=== PATIENT | female | born 1980 | race Caucasian/White ===

== ENCOUNTER 2018-11-01 15:40 | Emergency (ER) | payer BC ==
--- OUTSIDE RECORDS SUMMARY | 2018-11-01 15:45 | XMS REPORT | Continuity of Care Document ---
:1980 External Reference #:[id number] Author Name Christina Antony Care Team Providers Name Role Phone Suzanne Pritchett PA Primary Care Physician Unavailable Payers Type Date Identification Numbers Payment Provider Subscriber Expires: 2017 Policy Number: [id number] [employer] Nannette Galeana Group Name: [facility] [address] PayID: [id number] [place] [address] Policy Number: [id number] [facility] Nannette Galeana PayID: [id number] [address] [place] [address] Advance Directives Description No Information Available Problems Date Description Provider Status Onset: 09/27/2015 Myocardial infarction Zane Zamudio MD, [facility], Active [facility] Onset: 10/02/2017 Acute subendocardial infarction Zane Zamudio MD, [facility] , Active [facility] Onset: 07/03/2018 Localized, primary osteoarthritis Miles Sesay MD Active Onset: 07/03/2018 Current tear of lateral cartilage Miles Sesay MD Active AND/OR meniscus of knee Onset: 07/03/2018 Derangement of knee Miles Sesay MD Active Family History Date Family Member(s) Problem(s) Comments General Diabetes Type I General Hypertension General Cancer Social History Type Date Description Comments Sex Unknown Marital Status Lives With Spouse Occupation Currently Working Tobacco Use Start: Unknown End: Former Cigarette Smoker Unknown Smoking Status Reviewed: 10/08/18 Former Cigarette Smoker ETOH Use Occasionally consumes alcohol Tobacco Use Start: Unknown End: Patient is a former quit 09/20/15, Unknown smoker smoked for 15yrs 1PPD Recreational Drug Use Denies Drug Use Exercise Type/Frequency Does not exercise Allergies, Adverse Reactions, Alerts Description No Known Drug Allergies Medications Medication Date Status Form Strength Qnty SIG Indications Ordering Provider Aspirin 00/00/ Active Tablets 81mg 1 by mouth Unknown 0000 every day Tylenol 00/00/ Active prn Unknown 0000 Lisinopril 0000/ Active Tablets 10mg 90tabs 1 by mouth Marcis T. 0000 every day MD Zamudio FACC, [facility] Atorvastatin // Active Tablets 80mg 1 by mouth Unknown Calcium 0000 every day Novolog / Active Solution 100Unit/ML -on Unknown 0000 insulin pump Nitrostat / Active Tablets 0.4mg 30tabs one sl Marcis T. 0000 Sub q5min up Sodkathy, to 3 doses JOSHUA MISHRA, as needed [facility] Wellbutrin XL / Active Tablets ER 300mg 1 by mouth Unknown 0000 24HR every day Plavix 11/18/ Hx Tablets 75mg 90tabs 1 by mouth I21.4 Zane T. 2016 - every day Sodkathy, 10/21/ JOSHUA MISHRA, 2017 [facility] Metoprolol / Hx Tablets ER 50mg 1 by mouth Unknown Succinate ER 0000 - 24HR every day 2014 Chantix / Hx as Unknown 0000 - directed 2016 Effient / Hx Tablets 10mg 90tabs 1 by mouth Marcis T. - every day Sodums, 09/19/ JOSHUA MISHRA, 2014 [facility] Lexapro / Hx Tablets 10mg 1 by mouth Unknown 0000 - every day 2016 Medications Administered in Office Medication Date Status Form Strength Qnty SIG Indications Ordering Provider Depomedrol Administered Injection Dirk Fabienne, 40MG 018 M.D. Immunizations Description No Information Available Vital Signs Date Vital Result Comment 10/08/2018 2:51pm Height 64 inches 5'4" Weight 207.00 lb BP Systolic 138 mmHg BP Diastolic 80 mmHg Pain Level 3 BMI (Body Mass Index) 35.5 kg/m2 07/03/2018 8:12am Height 64 inches 5'4" Respiratory Rate 18 /min Pain Level 5 06/09/2018 8:31am Height 64 inches 5'4" Weight 203.00 lb Heart Rate 120 /min BP Systolic Sitting 148 mmHg Lue lg cuff BP Diastolic Sitting 98 mmHg Lue lg cuff Pain Level 4 BMI (Body Mass Index) 34.8 kg/m2 06/01/2018 10:06am Height 64 inches 5'4" Weight 203.00 lb Heart Rate 78 /min BP Systolic 144 mmHg BP Diastolic 80 mmHg Respiratory Rate 18 /min Pain Level 4 BMI (Body Mass Index) 34.8 kg/m2 04/27/2018 3:23pm Height 64 inches 5'4" Weight 203.00 lb Heart Rate 72 /min BP Systolic 138 mmHg BP Diastolic 74 mmHg Respiratory Rate 12 /min Body Temperature 98.8 F Pain Level 4 BMI (Body Mass Index) 34.8 kg/m2 04/20/2018 1:05pm Height 64 inches 5'4" Weight 208.00 lb w/ shoes Heart Rate 90 /min BP Systolic Sitting 126 mmHg lue lg cuff BP Diastolic Sitting 62 mmHg lue lg cuff BP Systolic Standing 122 mmHg lue lg cuff BP Diastolic Standing 68 mmHg lue lg cuff Respiratory Rate 18 /min BMI (Body Mass Index) 35.7 kg/m2 Ejection Fraction 55-60% echo 09/19/15 10/02/2017 2:52pm Height 64 inches 5'4" Weight 200.00 lb w/ shoes Heart Rate 132 /min regular BP Systolic Sitting 142 mmHg lue reg cuff BP Diastolic Sitting 82 mmHg lue reg cuff BP Systolic Standing 138 mmHg lue reg cuff BP Diastolic Standing 78 mmHg lue reg cuff Respiratory Rate 18 /min BMI (Body Mass Index) 34.3 kg/m2 Ejection Fraction 50-55% ECHO 09/19/15 11/18/2016 8:30am Height 64 inches 5'4" Weight 195.00 lb w/o shoes Heart Rate 92 /min reg BP Systolic Sitting 140 mmHg Rue, reg cuff BP Diastolic Sitting 100 mmHg Rue, reg cuff Respiratory Rate 16 /min BMI (Body Mass Index) 33.5 kg/m2 Ejection Fraction 50-55% as of 09/19/15 echo 07/03/2016 8:39am Height 64 inches 5'4" Weight 202.00 lb Heart Rate 94 /min 96 BP Systolic Sitting 116 mmHg left arm, reg cuff BP Diastolic Sitting 80 mmHg left arm, reg cuff BP Systolic Standing 112 mmHg left arm, reg cuff BP Diastolic Standing 78 mmHg left arm, reg cuff Respiratory Rate 20 /min BMI (Body Mass Index) 34.7 kg/m2 Ejection Fraction 50-55% 09/19/15 01/15/2016 9:49am Height 64 inches 5'4" Weight 197.00 lb Heart Rate 72 /min 76 BP Systolic Sitting 126 mmHg right arm, reg cuff BP Diastolic Sitting 84 mmHg right arm, reg cuff BP Systolic Standing 122 mmHg right arm, reg cuff BP Diastolic Standing 80 mmHg right arm, reg cuff Respiratory Rate 16 /min BMI (Body Mass Index) 33.8 kg/m2 Ejection Fraction 50-55% 09/19/15 09/27/2015 11:04am Height 64 inches 5'4" Weight 198.00 lb Heart Rate 68 /min 90 BP Systolic Sitting 118 mmHg right arm, reg cuff BP Diastolic Sitting 76 mmHg right arm, reg cuff BP Systolic Standing 110 mmHg right arm, reg cuff BP Diastolic Standing 76 mmHg right arm, reg cuff Respiratory Rate 16 /min BMI (Body Mass Index) 34.0 kg/m2 Ejection Fraction 60% 09/19/15 Cath Results Description No Information Available Procedures Date Code Description Status 04/27/2018 15937 Inject/Drain Joint/Bursa Major W/O US Completed 10/02/2017 83593 EKG Tracing & Interpretation Completed 11/18/2016 69860 EKG Tracing & Interpretation Completed 09/27/2015 36531 EKG Tracing & Interpretation Completed 09/19/2015 48884 Left Heart Cath. Incl S/I Coronaries, Angio S/I V Gram If Completed Done 09/19/2015 42261 ECHO Transthorasic Realtime 2D W Doppler & Color Flow Hosp Completed 09/19/2015 14522 Revascularization Acute Total/Subtotal Occlusion Completed Encounters Type Date Location Provider Dx Diagnosis Office Visit 07/03/2018 Orthopedic Miles Sesay MD M17.12 Unilateral primary 8:15a [facility] osteoarthritis, left knee M23.612 Oth spon disrupt of anterior cruciate ligament of left knee Office Visit 06/09/2018 Orthopedic Miles Sesay M17.12 Unilateral primary 8:30a [facility] osteoarthritis, left [facility] knee M23.612 Oth spon disrupt of anterior cruciate ligament of left knee M23.352 Oth meniscus derang, posterior horn of lat mensc, left knee Office Visit 06/01/2018 Orthopedic Lyndon Loving M17.12 Unilateral primary 10:15a [facility] [place] osteoarthritis, left [facility] knee S83.204A Oth tear of unsp meniscus, current injury, left knee, init Office Visit 04/27/2018 Orthopedic ayaz Fabienne, M17.12 Unilateral primary 3:00p [facility] osteoarthritis, left [facility] knee M11.262 Other chondrocalcinosis, left knee Office Visit 04/20/2018 1:20p [facility] Zane Lazo I21.4 Non-St elevation Of [employer] Dispenser AT [facility] MD Lizz, (Nstemi) [facility] myocardial infarction Office Visit 10/02/2017 3:00p [facility] Zane Lazo I21.4 Non-St elevation Of [employer] AT [place] Zamudio MD, (Nstemi) [facility] myocardial infarction Office Visit 11/18/2016 8:40a [facility] Zane Lazo I21.4 Non-St elevation Of [employer] AT [place] Zamudio MD, (Nstemi) [facility] myocardial infarction M25.512 Pain in left shoulder Office Visit 07/03/2016 8:40a [facility] Zane Lazo I21.4 Non-St elevation Of [employer] Dispenser AT [place] Zamudio MD, (Nstemi) [facility] myocardial infarction Office Visit 01/15/2016 9:40a [facility] Zane Lazo I21.4 Non-St elevation Of [employer] Dispenser AT [place] Zamudio MD, (Nstemi) [facility] myocardial infarction E11.9 Type 2 diabetes mellitus without complications Office Visit 09/27/2015 11:20a [facility] Zane Lazo I21.4 Non-St elevation Of [employer] Dispenser AT [place] Zamudio MD, (Nstemi) [facility] myocardial infarction F17.209 Nicotine dependence, unsp, w unsp nicotine-induced disorders E11.9 Type 2 diabetes mellitus without complications Office Visit 09/20/2015 3:01p [facility] I21.4 Non-St elevation Assoc,sea Kellogg D.O. [facility] F[facility].209 Nicotine dependence, unsp, w unsp nicotine-induced disorders E11.9 Type 2 diabetes mellitus without complications F41.9 Anxiety disorder, unspecified Office Visit 09/19/2015 3:00p [facility] Miranda I21.4 Non-St elevation Assoc,sea Kellogg D.O. (Nstemi) Hospitalists myocardial infarction F17.209 Nicotine dependence, unsp, w unsp nicotine-induced disorders E11.9 Type 2 diabetes mellitus without complications F41.9 Anxiety disorder, unspecified Office Visit 09/19/2015 [facility] Zane Zamudio, I21.4 Non-St elevation 3:36p Of [facility] AT [facility] , FACPete, [facility]SCJASON (Nstemi) myocardial infarction Office Visit 09/18/2015 [facility] Justyn Artmorena I21.4 Non-St elevation 3:00p Assoc,pc Deandre CUNHA (Nstemi) Hospitalists myocardial infarction F17.209 Nicotine dependence, unsp, w unsp nicotine-induced disorders E11.9 Type 2 diabetes mellitus without complications F41.9 Anxiety disorder, unspecified Office Visit 10/01/2014 3:20p [facility] Brad A. 250.10 Diabetes W/ Assoc,pc [place], Ketoacidosis Type Hospitalists M.DKatelyn II Or Unspec Controlled 276.51 Dehydration Office Visit 09/30/2014 3:20p [facility] Brad AKatelyn 250.10 Diabetes W/ Assoc,pc [place], Ketoacidosis Type Hospitalists M.DKatelyn II Or Unspec Controlled 276.51 Dehydration Plan of Treatment Future Appointment(s):2018 8:15 am - Miles Sesay MD at [facility]10/14/2018 9:30 am - Jose De La Paz M.D. at [facility]10/08/2018 - Miles Sesay, MDM17.12 Unilateral primary osteoarthritis, left kneeNew Therapy:Physical TherapyFollow up:Follow up: in .612 Other spontaneous disruption of anterior cruciate ligament o
[2018-11-01 15:55] VITALS: BP 141/80
--- NOTE | 2018-11-01 16:36 | UC ---
Knee Pain HPI - HPI Summary HPI Summary: FELL OFF BLEACHERS YESTERDAY AFTERNOON AND TWISTED HER LEFT KNEE. HAD NO PAIN INITIALLY BUT THIS MORNING WOKE UP WITH SIGNIFICANT PAIN AND SWELLING. IS UNABLE TO WEIGHT-BEAR. HAS SIGNIFICANTLY LIMITED RANGE OF MOTION. IS FOLLOWING WITH DR. HUBBARD WITH ORTHOPEDICS FOR WHAT SOUNDS LIKE A PATEL'S CYST IN HER LEFT KNEE AND ALSO OSTEOARTHRITIS. REPORTS HISTORY OF MENISCAL SURGERY ABOUT 25 YEARS AGO. ALSO REPORTS THAT IN HER EVALUATIONS BY DR. HUBBARD IT WAS DISCOVERED THAT SHE HAS NO ACL IN THAT LEFT KNEE. - History of Current Complaint Chief Complaint: UCLowerExtremity Stated Complaint: KNEE INJURY Time Seen by Provider: 11/01/18 15:59 Hx Obtained From: Patient Hx Last Menstrual Period: has IUD, over 10 yrs Onset/Duration: Gradual Onset, Lasting Hours, Still Present Severity Initially: Moderate Severity Currently: Moderate Pain Intensity: 9 Pain Scale Used: 0-10 Numeric Character: Sharp Aggravating Factor(s): Movement, Weight Bearing Alleviating Factor(s): Rest Associated Signs And Symptoms: Positive: Swelling Able to Bear Weight: No - Allergies/Home Medications Allergies/Adverse Reactions: Allergies Allergy/AdvReac Type Severity Reaction Status Date / Time No Known Allergies Allergy Verified 11/01/18 15:52 PMH/Surg Hx/FS Hx/Imm Hx Endocrine History: Diabetes Cardiovascular History: Hypertension - Surgical History Surgical History: Yes Surgery Procedure, Year, and Place: Gastric bypass 2007, [facility] [place] , [place],. cardiac stent. C SECTION 2001. 1992 Lt KNEE - MMT REPAIR - Family History Known Family History: Negative: Cardiac Disease, Hypertension, Diabetes - Social History Alcohol Use: Occasionally Alcohol Amount: 2 Substance Use Type: None Smoking Status (MU): Light Every Day Tobacco Smoker Type: Cigarettes Amount Used/How Often: 1 PPD Have You Smoked in the Last Year: Yes - Immunization History Most Recent Influenza Vaccination: 2013 Most Recent Tetanus Shot: unk Most Recent Pneumonia Vaccination: 2013 Review of Systems All Other Systems Reviewed And Are Negative: Yes Constitutional: Positive: Negative Respiratory: Positive: Negative Cardiovascular: Positive: Negative Gastrointestinal: Positive: Negative Musculoskeletal: Positive: Arthralgia, Decreased ROM, Edema Physical Exam Triage Information Reviewed: Yes Appearance: Well-Appearing, Well-Nourished, Pain Distress - MODERATE Vital Signs: Initial Vital Signs Temp 98.6 F 11/01/18 15:47 Pulse 90 11/01/18 15:47 Resp 17 11/01/18 15:47 BP 141/80 11/01/18 15:47 Pulse Ox 100 11/01/18 15:47 Vital Signs Reviewed: Yes Eyes: Positive: Conjunctiva Clear ENT: Positive: Hearing grossly normal Neck: Positive: Supple Respiratory: Positive: No respiratory distress, No accessory muscle use Cardiovascular: Positive: Pulses Normal Abdomen Description: Positive: Soft Musculoskeletal: Positive: ROM Limited @ - LEFT KNEE, Edema @ - LEFT KNEE, Other : - TTP LEFT KNEE PROXIMALLY AND OVER LATERAL JOINT LINE AND PATELLAR LIGAMENT. LIMITED ROM BOTH EXTENSION AND FLEXION. UNABLE TO DO FULL KNEE EXAM DUE TO PT DISCOMFORT. LARGE EFFUSION. Neurological: Positive: Alert Psychological: Positive: Age Appropriate Behavior Skin: Negative: Rashes Diagnostics - Radiology LEFT KNEE PAIN Radiology Interpretation Completed By: Radiologist Summary of Radiographic Findings: LARGE JOINT EFFUSION, NO FRACTURE IS SEEN. Knee Pain Course/Dx - Course Course Of Treatment: LARGE JOINT EFFUSION ON XRAY TODAY. SUSPECT INTERNAL KNEE INJURY. OTC MEDS FOR PAIN. HYDROCODONE FOR BREAKTHROUGH. CALL ORTHO TOMORROW FOR F/U APPT. KNEE IMMOBILIZER AND CRUTCHES PROVIDED TODAY. CHIEF ENGINEER REFERENCE#: [id number] - Differential Dx/Diagnosis Provider Diagnosis: Left knee injury Discharge - Sign-Out/Discharge Documenting (check all that apply): Patient Departure All imaging exams completed and their final reports reviewed: Yes - Discharge Plan Condition: Stable Disposition: HOME Prescriptions: HYDROcodone/ACETAMIN 5-325 MG* [[place] 5-325 TAB*] 1 tab PO Q6H PRN #20 tab MDD 4 PRN Reason: Pain Patient Education Materials: Swollen Knee Joint (ED) Referrals: Suzanne Pritchett PA [Primary Care Provider] - If Needed Miles Hubbard MD [Medical Doctor] - 2 Days Additional Instructions: LEFT KNEE XRAY TODAY SHOWS LARGE JOINT EFFUSION, NO FRACTURE. OTC IBUPROFEN OR ALEVE NEEDED FOR DISCOMFORT. HYDROCODONE/APAP FOR BREAKTHROUGH PAIN. REST, ICE, COMPRESS, ELEVATE. KNEE IMMOBILIZER AND CRUTCHES TO HELP WITH MOBILITY. SUSPECTED INTERNAL KNEE INJURY: The examiner of your injured knee suspects an internal injury to the cartilage or internal ligaments. This must be further investigated by an land acquisition specialist. The knee should be protected, ice packed, and elevated while awaiting your follow-up exam by the orthopedist. If there is severe swelling, severe pain, or any new symptoms while awaiting your exam, you should call the orthopedist. (If he/she is unavailable, call us or return for re-examination.) - Billing Disposition and Condition Condition: STABLE Disposition: Home
== END 2018-11-01 17:32 | disposition home or self-care (01) ==
LOC: UCEAST 15:40
DX: S89.92XA Unspecified injury of left lower leg, initial encounter (principal); F17.210 Nicotine dependence, cigarettes, uncomplicated; I10 Essential (primary) hypertension; E11.9 Type 2 diabetes mellitus without complications; X58.XXXA Exposure to other specified factors, initial encounter; Y92.9 Unspecified place or not applicable
CPT/HCPCS: 99213; G0463

== ENCOUNTER 2019-02-17 05:33 | Day surgery (SDC) | payer BC ==
--- NOTE | 2019-02-09 14:29 | HP ---
PRE-OPERATIVE HISTORY AND PHYSICAL: DATE OF SURGERY: 02/17/19 ATTENDING SURGEON: Dr. Miles Sesay* (dictated by Francisca Astorga). PROCEDURE: Left knee arthroscopy, anterior cruciate ligament reconstruction with allograft, arthroscopic surgery with BioUni to the medial femoral condyle. CHIEF COMPLAINT: Right knee. HISTORY OF PRESENT ILLNESS: Nannette is a 38-year-old female who presents to the clinic for followup of her left knee ACL tear and osteoarthritis in the medial compartment. She has failed conservative management, therefore, agreed to undergo left knee arthroscopy, anterior cruciate ligament reconstruction with allograft. Arthroscopic surgery with BioUni to the medial femoral condyle with Dr. Sesay on 02/17/19. PAST MEDICAL HISTORY: 1. Hypertension and AMI in 2014. 2. Type 1 diabetes. PAST SURGICAL HISTORY: 1. Cardiac stent 2014. 2. Gastric bypass in 2007. 3. Left knee scope. 4. The patient denies prior complications with anesthesia. FAMILY HISTORY: Positive for diabetes, hypertension, and cancer. Denies family history of DVT or PE. SOCIAL HISTORY: She lives with her spouse. 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 She is a former smoker, quit in 2014. She reports occasional alcohol consumption. She exercises occasionally. She is right hand dominant. MEDICATIONS: 1. Diclofenac 75 mg 1 by mouth twice a daily with food. 2. Aspirin 81 mg 1 by mouth every day. 3. Tylenol as needed. 4. Lisinopril 10 mg 1 by mouth daily. 5. Atorvastatin 80 mg 1 by mouth daily. 6. NovoLog 100 units/mL on insulin pump as needed. 7. Nitrostat 0.4 mg 1 sublingual every 5 minutes up to 3 doses as needed. 8. Wellbutrin 300 mg 1 by mouth every day. ALLERGIES: No known drug allergies. REVIEW OF SYSTEMS: The 14-point review of systems was reviewed with the patient. Positive for current complaint, otherwise negative. Denies fevers, chills, chest pain, shortness of breath, history of DVT or PE, history of bleeding disorder. PHYSICAL EXAMINATION GENERAL: A 38-year-old well-developed, well-nourished female in no acute distress. Alert and oriented x3. Appropriate mood and affect. No problems with coordination of the lower extremities VITAL SIGNS: Height 64, weight 206. Pulse 94, blood pressure 127/91, temperature 98.2, BMI 35.4. HEENT: Normocephalic, atraumatic, PERRLA. Throat clear. NECK: Supple. PULMONARY: Lungs clear to auscultation bilaterally. No wheezing, rhonchi, or rales. CARDIAC: Regular rate and rhythm. S1 and S2. No murmurs, gallops, or rubs. No edema. ABDOMEN: Positive bowel sounds. Soft, nontender. NEUROLOGIC: Alert and oriented x3. Cranial nerves grossly intact. MUSCULOSKELETAL: Left lower extremity: Skin is intact. No warmth or erythema. She has a mild effusion, tenderness over the medial joint line to the Talia. Negative posterior drawer. Stable varus and valgus stress. Range of motion is 1 to 135. Calf soft, nontender. 5/5 strength with ankle dorsiflexion and plantar flexion. Brisk capillary refill. DIAGNOSTIC STUDIES: MRI revealed medial compartment osteoarthritis, loss of ACL, degenerative changes with parameniscal cysts and some tearing of the lateral meniscus. PLAN: The patient is scheduled to undergo left knee arthroscopy. anterior cruciate ligament reconstruction with allograft, arthroscopic surgery with BioUni to the medial femoral condyle on 02/17/19. She has been cleared by her primary care physician as well as Cardiology. She was instructed to stop aspirin and NSAIDs 1- week prior to surgery. Percocet will be used for postop pain management and Keflex for antibiotics prophylaxis. DARRIN HUFFMAN [id number]/CARLOS #: [id number] ZAIRE
[~2019-02-17 05:33] MED LIST: Buffered Lidocaine 1% SYRIN* 1 ML/SYRINGE INTRADERM ONE
[2019-02-17] MEDS ORDERED: Lactated Ringers 1000 ML Bag* 1,000 ML IV SCH (06:00)
[2019-02-17] MEDS ORDERED: Famotidine IV* 10 MG/ML 2 ML (20 mg) ONE (06:00)
[2019-02-17] MEDS ORDERED: ceFAZolin 2 GM PREMIX in ORs 2 GM/50 ML BAG IVPB ONE (06:00)
[2019-02-17] MEDS ORDERED: Famotidine IV* 10 MG/ML 2 ML (20 mg) IV ONE (06:00)
[2019-02-17] MEDS ORDERED: Ketorolac INJ* 30 MG/ML 1 ML VIAL ONE (07:08)
[2019-02-17] MEDS ORDERED: Midazolam* 1 MG/ML 5 ML VIAL (5 MG) ONE (07:08)
[2019-02-17] MEDS ORDERED: Dexamethasone IV* 4 MG/ML 1 ML (4 MG) ONE (07:08)
[2019-02-17] MEDS ORDERED: fentaNYL* 50 MCG/ML 5 ML VIAL (250 MCG VIAL) ONE (07:08)
[2019-02-17] MEDS ORDERED: Propofol* 10 MG/ML 20 ML BTL ONE (07:08)
[2019-02-17] MEDS ORDERED: Ondansetron INJ* 2 MG/ML VIAL ONE ×2 (07:08→11:12)
[2019-02-17] MEDS ORDERED: Lidocaine 2% PF * 5 ML VIAL ONE (07:08)
[2019-02-17] MEDS ORDERED: Phenylephrine 10 MG/ML VIAL* 1 ML VIAL ONE (07:08)
[2019-02-17] MEDS ORDERED: KETAMINE HCL* 50 MG/ML 10 ML VIAL ONE (07:08)
[2019-02-17] MEDS ORDERED: Lidocaine 1% MPF wEPI 200,000* 30 ML SDV ONE (07:49)
[2019-02-17] MEDS ORDERED: Ropivacaine* 2 MG/ML 20 ML VIAL (0.2%) ONE ×2 (07:50→10:36)
[2019-02-17] MEDS ORDERED: Insulin REGULAR(*) 1 UNITS UNIT ONE (08:34)
[2019-02-17] MEDS ORDERED: fentaNYL* 50 MCG/ML 2 ML VIAL (100 MCG VIAL) ONE ×3 (08:40→11:08)
[2019-02-17] MEDS ORDERED: DiMENhydriNATE IV* 50 MG/ML VIAL ONE (10:25)
[2019-02-17] MEDS ORDERED: Ondansetron INJ* 2 MG/ML VIAL IV PRN (10:31)
[2019-02-17] MEDS ORDERED: Naloxone* 0.4 MG/ML 1 ML VIAL IV PRN (10:31)
[2019-02-17] MEDS ORDERED: HYDROmorphone INJ1* 1 MG/ML SYRINGE ONE (10:34)
[2019-02-17] MEDS ORDERED: oxyCODONE/Acetamin 5/325 MG* TAB ONE (11:08)
[2019-02-17] MEDS: fentaNYL* 50 MCG/ML 2 ML VIAL (100 MCG VIAL) IV PRN ×2 (11:10→11:31)
[2019-02-17] MEDS: oxyCODONE/Acetamin 5/325 MG* TAB PO PRN ×2 (11:11→12:12)
[2019-02-17 12:19] VITALS: BP 102/78
--- NOTE | 2019-02-17 16:31 | OP ---
CC: PCP* OPERATIVE REPORT: DATE OF OPERATION: 02/17/19 - SDS DATE OF : 78 ATTENDING SURGEON: Miles Sesay MD. LOGISTICS OFFICER: DARRIN Eller, and DARRIN Lama. An operator assistant i cementing was needed for the entirety of the case to help with positioning, retraction, and utilized throughout all portions of the case. ANESTHESIOLOGIST: Dr. Love. ANESTHESIA: General. 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 OPERATIVE PROCEDURE: Left knee arthroscopy with: 1. Partial medial and partial lateral meniscectomy. 2. Bio[employer] medial femoral condyle osteochondral allograft. 3. ACL reconstruction using allograft. Please add a 22-modifier due to the complexity of this case and the open and arthroscopic portions of the case. TOURNIQUET TIME: 0 minutes. COMPLICATIONS: None. INSTRUMENT USED: Two Elam and NephrealSociable SoftSilk screws, one was 7 x 20 and then other was 9 x 25. DISPOSITION: Stable. INDICATIONS: Nannette Galeana is a 38-year-old female with a complicated knee history and issue. She has had a previous ACL injury years ago. She also has medial compartment degeneration. She has a history of a previous partial meniscectomy in the past, her knee continued to get more painful and stiff. After extensive discussion of the risks and benefits and failure to conservative management including weight loss, physical therapy, antiinflammatories, ice and heat, and one injection, we discussed options including an HTO, which she already was in valgus. We also talked about unicompartmental arthroplasty for which she is too young and does not have a stable ligament. We also discussed isolation of ACL reconstruction with possible microfracture. The area was quite large, therefore after extensive discussion with some colleagues, we decided to proceed with left knee arthroscopy with ACL reconstruction to allow for a stable knee and allograft to the medial femoral condyle. After extensive discussion of risks and benefits and preoperative medical risk optimization, she has elected to proceed with surgery. Risks and benefits included but are not limited to bleeding; infection ; damage to nerves, vessels, surrounding structures; wound nonhealing; persistent pain; need for further surgery; scaring; stiffness; incomplete relief of symptoms; risks of anesthesia; risk of DVT; worsening arthritis; failure of the graft; failure of the plug; fracture dislocation; and infection. She has elected to proceed. She underwent preoperative medical optimization although her sugars were not controlled well and were elevated at the time of surgery. DESCRIPTION OF PROCEDURE: The patient was greeted in the preoperative area by the attending surgeon. Correct extremity was marked. Consent was confirmed. The patient was brought back to the operating suite, was placed in supine position on the operating room table. She then underwent general anesthesia and LMA intubation after which she was properly positioned in the bed. An unsterile tourniquet was placed high on the proximal thigh. The lateral post was positioned. She was appropriately placed in the bed with a small krause bag to allow the knee to keep at 90 degrees. The left leg was then prepped and draped in the usual sterile fashion beginning with chlorhexidine soap, scrub, and alcohol wipe and a final prep with ChloraPrep. After appropriate surgical pause indicating site, side, procedure, administration of antibiotics, the knee was intra-articularly injected with 1% lidocaine with epi. The ACL allograft which is BTB was prepared on the back table after it had been appropriately thawed by the operator assistant i cementing to allow by 9 x 23 bone block and a 10 x 30 mm bone block. Once it was prepared, it was placed on tension, approximately 15 pounds of tension. The anterolateral portal was then made using a 11 blade. The scope was brought back to the joint. The joint was examined, there was abundant fat pad, there was evidence of a previous ACL complete disruption with an unstable flap. The anteromedial portal was made sharp after localization with an 18 blade. The shaver was used to debride back the abundant fat pad. The ACL remnant was debrided back. At this point, a diagnostic arthroscopy was done. The patellofemoral joint and the trochlea had grade 0 changes. The patellar had areas of grade 1 and 2 changes with minimal fraying. The medial and lateral gutters were intact without recess. There was some mild osteophytosis. The medial compartment was examined. There was area of grade 2 changes with unstable flaps at the edges but at center area of grade 3 and 4 change along the center of the weightbearing zone of medial femoral condyle. This measured greater than 2 cm by 2 cm. The medial meniscus had some unstable fraying that was present, this was debrided back using biters and quinn to remove any loose debris, but preserve as much normal meniscus as possible. The plateau had areas of grade 1 changes. In the posterior aspect along the weightbearing zone, there was small area about 3 mm x 4 mm with grade 2 and 3 changes. The PCL was intact. The knee was placed in a [id number] position. The lateral compartment had grade 0 to 1 change at the lateral femoral condyle and lateral plateau. There was fraying of the lateral meniscus, which was debrided back. The root had some unstable fraying too and had some degeneration but was grossly intact. At this point, decision was made to proceed with ACL reconstruction. The knee was then placed in 90 degrees. The lateral wall was prepared in the usual fashion using electrocautery device and the starting awl was used to bogdan the lateral femoral condyle and then the scope was positioned in the medial portal to make sure that there was appropriate positioning. This was used as a reference point for the final femoral tunnel. The tip to tip guide was placed for the tibial tunnel at about 50 to 55 degrees. Once the center point of the tibial footprint was identified, the guidewire was placed. Once appropriate position was identified, a 10 mm full- bore reamer was then used to drill the tunnel. The tunnel edges were rasped. All excess loose debris was removed. The bone quality was quite poor. A carrot was placed to prevent fluid egress. The shaver was used to remove any excess debris from the tunnel. At this point , the knee was then placed in hyperflexion. The Elam and Nephew straight guide was then placed to the ACL footprint in the lateral wall and a Beath pin was placed, but again the bone quality was quite poor. Once this was placed in appropriate position, this was then drilled with a 9 mm low profile reamer to a depth of about 24 to 25 mm. Excess bone and debris was removed. The tunnel was then carefully notched. The Beath pin was then passed through the wound. A #2 Ethibond was placed through the eyelet to allow for suture passage. Once this was passed, the graft was brought from the back table to the operating table and passed under direct and arthroscopic visualization. Once it was well - seated, this was then secured using a 7 x 20 mm SoftSilk screw. The purchase was good to excellent. The knee was then cycled approximately 20 times to remove any creep and stress from the graft. Images were obtained to make sure there was no evidence of impinging anteriorly with full extension and the graft did not shift at all during this motion. At this point, instead of fixing the tibial portion, decision was made to go with open portion of the case. The fresh allograft had been thawed in the back table and rinsed thoroughly with 5 L of sterile saline and lavaged. A medial arthrotomy was then made using a 15 blade to allow for exposure of the medial femoral condyle to identify the area of the large defect. The knee was then hyperflexed and gently , a Hohmann was placed along the medial condyle to help retract the patella laterally and then a second retractor was placed on the medial aspect. This helped to expose the condyle. The area of the most wear was identified. With the knee flexed appropriately, a sizing guide was placed, an M17 was found to be the appropriate size and this was gently marked on the condyle. This covered all areas of the defect. The remaining cartilage was of good/ acceptable quality. After this was marked with a sterile pen, the allograft was secured and using the M17 guide we tried to identify a similar coverable area with the right radius of curvature. The graft had been specially ordered based on the patient's anatomy. The graft was secured on the back table and secured in the 4-prong Arthrex device. The sizing guide was then placed on this to find the best fit to radius of curvature. Once this was identified, this was then marked with a fresh pen. After this, the scoring guide was then placed, it was secured with a guidepin and the outer edges were scored. The appropriate cutting guide was then placed and then impacted into position. Once this was impacted carefully to make sure an even block was taken, the cutting device from the osteotome were removed carefully with care to protect the cartilage. Then, a second device was then placed and impacted into position and this had a side slot for the saw blade. This was impacted into position which was appropriately seated. A small sagittal saw was then used to score the edges and the reciprocating saw was used to carefully undercut the allograft. Once this was done, the graft was then removed from its entirety and the edges were removed. This was then carefully released from the cutting guide with care to prevent any damage. This was then placed in a second recess guide to make sure that the cut would fit appropriately. There was a small area that was leveled. Once it was completely leveled off and rasped down, it fit appropriately in the sizing block. Once this was completed, the graft was soaked in PRP that had been obtained from the patient during the case. At this point, attention was directed back to the knee which had been provisionally placed with a saline-soaked gauze to prevent it from dying out. The knee was then placed in hyperflexion, both the Hohmanns were placed on either side of the defect. A guide was then placed to place two large threaded pins on the inferior and superior portions of the port lions defect. Once the two pins were placed, a separate guide was placed to then do the coring reamer, first a safety block was placed inferiorly on the inferior pin. The coring reamer was then placed in the most superior portion of the graft, then after this was reamed down to a stop, the protection plate was situated on the proximal pin and same thing was done inferiorly. This allowed for coring up the inferior and superior portions and then a final cutting guide was then placed to take up the middle portion to remove the edges of the bone. The bone block to the harvest site was found to be well placed, there was no unstable edges. There was good bleeding bone, there was no need for a microfracture. At this point, a small layer of DBX was then placed into the defect site to allow for an area of adhesive. At this point, the graft that had been previously soaked in the PRP was then brought to the field and packed under direct observation until it was appropriately seated. Care was taken not to have any step-off even 1 mm. After this was done, the knee was taken through flexion and extension and it was found glide appropriately. The scope was brought to the joint and images were obtained to make sure that this was well seated. This covered almost all of the area of chondrosis for the medial femoral condyle. At this point, attention was directed back to the ACL. With the knee placed in about 20 to 30 degrees of flexion, tension on the tibial sutures, and all creep and stress removed from the graft, the 9 x 25 SoftSilk screw was then used to secure the tibial bone block. The knee was taken through range of motion and Talia was assessed and found to be stable. The wounds were then copiously irrigated in sterile saline. Final images were obtained. The arthrotomy was closed with 0 and #1 Vicryl in an interrupted fashion to make sure it was not over tightened. The knee was then taken through range of motion and the skin was closed in layers with 3-0 Monocryl and 3-0 nylon. Sterile dressings were applied. The knee was injected with 0.2% ropivacaine. Cryo/Cuff was applied. The patient was awoken from anesthesia, transferred to PACU in stable condition. POSTOPERATIVE PLAN: She will be nonweightbearing. She will be in the brace for approximately 6 weeks. She will start physical therapy within the 1st week. She will be discharged on pain medication and antibiotics. She will be discharged on pain medication, antibiotics. DVT prophylaxis considered but deferred. She will be on a heavy aspirin. I will see the patient back in 6 to 8 days. [id number] #: [id number] MTDD
== END 2019-02-17 12:59 | disposition home or self-care (01) ==
LOC: OR 05:33
PROVIDERS: ATTEND Orthopaedic Surgery
DX: M23.8X2 Other internal derangements of left knee (principal); M93.962 Osteochondropathy, unspecified, left lower leg; M23.201 Derangement of unspecified lateral meniscus due to old tear or injury, left knee; M23.204 Derangement of unspecified medial meniscus due to old tear or injury, left knee; E10.9 Type 1 diabetes mellitus without complications; Z79.4 Long term (current) use of insulin; I10 Essential (primary) hypertension; I25.2 Old myocardial infarction; Z95.5 Presence of coronary angioplasty implant and graft
CPT/HCPCS: 27442; 81025; A9270-GY; C1713; C1776; C9359; J0690; J1100; J1170; J1240; J1885; J2001; J2250; J2405; J2704; J2795; J3010